=== PATIENT | female | born 1960 | race Caucasian/White ===

== ENCOUNTER 2016-09-27 07:30 | Inpatient (IN) | payer BC ==
[~2016-09-27] VITALS: Ht 172.7 cm; Wt 89.0 kg
[2016-10-31] MEDS ORDERED: D5-NS + KCL 20 MEQ 1,000 ML IV SCH (05:30)
[2016-11-01] VITALS (8 sets, daily range): BP systolic 100–123; BP diastolic 56–72; PULSE 62–77; RESP 13–28; Ht 172.7 cm; Wt 89.0 kg
[2016-11-01] MEDS ORDERED: metroNIDAZOLE 500 MG/NS (PMX) 100 ML IVPB ONE (05:30)
[2016-11-01] MEDS ORDERED: CEFAZOLIN 2 GM/50 ML (PMX) 50 ML IVPB ONE (06:00)
[2016-11-01] MEDS ORDERED: VASOPRESSIN 20 UNITS INJ ONE (06:45)
[2016-11-01] MEDS ORDERED: THROMBIN 5000 UNIT VIAL ONE (06:45)
[2016-11-01] MEDS ORDERED: CLINDAMYCIN 900 MG/50 ML D5W IVPB IVPB ONE (07:00)
[2016-11-01] MEDS ORDERED: metroNIDAZOLE 500 MG/100 ML NS IVPB ONE (07:00)
[2016-11-01] MEDS ORDERED: METHYLENE BLUE 1% 10 ML INJ ONE (07:10)
[2016-11-01] MEDS ORDERED: MIDAZOLAM 1 MG/ML 2 ML INJ ONE (07:53)
[2016-11-01] MEDS ORDERED: morphine SULFATE/PF (10 MG/10 ML) INJ ONE (07:55)
--- NOTE | 2016-11-01 07:55 | HP ---
Date/Time of Note Date/Time of Note DATE: 11/01/16 TIME: 07:55 Assessment/Plan VTE Prophylaxis VTE Prophylaxis Intervention: SCD's Lines/Catheters IV Catheter Type (from Nrsg): Peripheral IV HPI/ROS Admit Date/Time Admit Date/Time Nov 01, 2016 at 05:38 Hx of Present Illness Katarzyna Lozano M.D. 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 Surgery has been previously scheduled and cx'd twice due to pt's request Past Medical History: Surgical: Appy G 5 P 1 AB 4 Medical: Diabtes, High Cholesterol, Arthritis Medications: 06/29/16 Flagyl 250 mg tablet 1 tablet by mouth as directed 1 po qd x 2 days louise 09/08/16 Golytely 236 gram-22.74 gram-6.74 gram-5.86 gram oral solution 1 mL by mouth as directed begin bowel prep at 11am 09/08/16 Levaquin 250 mg tablet 1 tablet by mouth as directed 1 po qd x 2 days louise 06/29/16 Levaquin 500 mg tablet 1 tablet by mouth DAILY gardisil Allergies: 06/05/16 Penicillins Family Hx: non-contributary Social HX: non-contributary ROS: as above Physical Examination Vitals (10/24/2016): Weight 197, Height 68, BP 118/60, BMI 30.0. General: Alert. HEENT: Pupils are equal, round, reactive to light and accommodation. Neck: Supple with no masses of lymphadenopathy. Breast: Deferred due to recent examination and responsibility of primary care physician. Chest: Clear to auscultation Heart: Normal rhythm with no murmur. Abdomen: Non tender, no ascites nor organomeglay. Pelvis: Uterus enlarged and globular, no adnexal masses, mildly tender with prolabsed small myoma; not technically possibe to do leep or cone Rectal: Confirmatory with pelvic exam. Neurological: Grossly intact Assessment: PMB and at least FREDDY II. Plan: Plan TLH/BSO possible LND. All risks and benefits of this procedure have been discussed in detail with the patient, as well as alternative treatment strategies and their implications. The patient is aware that there is some possibility of a blood transfusion and its associated risks and benefits. She wishes to proceed and gives her informed consent. Katarzyna Lozano M.D. PMH/Family/Social Social History Smoking Status: Current every day smoker Exam/Review of Systems Vital Signs Vitals Vital Signs Date Time Temp Pulse Resp B/P Pulse Ox O2 Delivery O2 Flow Rate FiO2 11/01/16 06:25 97.8 75 18 115/72 96 Room Air KATARZYNA LOZANO MD Nov 01, 2016 07:55
--- NOTE | 2016-11-01 07:56 | HPN ---
Date/Time of Note Date/Time of Note DATE: 11/01/16 TIME: 07:56 Interval H&P Admission Note Pt. seen H&P reviewed: No system changes KATARZYNA LOZANO MD Nov 01, 2016 07:56
[2016-11-01] MEDS ORDERED: PHENYLephrine (100 MCG/ML) 5ML SYG ONE (08:08)
[2016-11-01] MEDS ORDERED: PROPOFOL 20 ML ONE (08:35)
[2016-11-01] MEDS ORDERED: LIDOCAINE 2% (SDV) 5 ML INJ ONE (08:35)
[2016-11-01] MEDS ORDERED: SUCCINYLCHOLINE CHLORIDE 100 MG/5 ML SYG IV ONE (08:35)
[2016-11-01] MEDS ORDERED: FENTAnyl 50 MCG/ML VIAL ONE (08:36)
[2016-11-01] MEDS ORDERED: ROCURONIUM 50 MG INJ ONE (08:36)
[2016-11-01] MEDS ORDERED: PROCHLORPERAZINE 10 MG INJ IV PRN (09:30)
[2016-11-01] MEDS ORDERED: DIPHENHYDRAMINE 50 MG INJ IV PRN ×2 (09:30→12:00)
[2016-11-01] MEDS ORDERED: METOCLOPRAMIDE 10 MG INJ IV PRN (09:30)
[2016-11-01] MEDS ORDERED: HYDROmorphONE 1 MG/ML SYG IV PRN ×2 (09:30)
[2016-11-01] MEDS ORDERED: ONDANSETRON 4 MG INJ IV PRN ×3 (09:30→12:00)
[2016-11-01] MEDS ORDERED: HYDROmorphONE (0.2 MG/ML) 10ML SYG IV PRN ×3 (09:30)
[2016-11-01] MEDS ORDERED: NALOXONE (0.4 MG/ML) INJ IV PRN (09:30)
[2016-11-01] MEDS ORDERED: FENTAnyl 50 MCG/ML VIAL IV PRN (09:30)
[2016-11-01] MEDS ORDERED: VASOPRESSIN 20 UNITS INJ IRR ONE (09:35)
[2016-11-01] MEDS ORDERED: THROMBIN 5000 UNIT VIAL TOP ONE (09:37)
[2016-11-01] MEDS: POTASSIUM CHLORIDE 20 MEQ in LACTATED RINGER'S 1,000 ML IV SCH ×3 (11:37→21:43)
[2016-11-01] MEDS: DIPHENHYDRAMINE 50 MG INJ IV PRN ×2 (11:54→12:10)
[2016-11-01] MEDS ORDERED: morphine 2 MG INJ IV PRN (12:00)
[2016-11-01] MEDS ORDERED: HYDROCODONE/APAP (5/325) TAB PO PRN (12:00)
[2016-11-01] MEDS ORDERED: CEFAZOLIN 1 GM in SOD CHLORIDE 0.9% 100 ML IVPB SCH (12:00)
[2016-11-01 12:07] LABS: ADD SCAN DIFF NO
[2016-11-01 12:15] LABS: BASOPHILS % 0.5 % (0.0-2.0); EOSINOPHILS # 0.2 10^3/ul (0.0-0.5); EOSINOPHILS % 2.6 % (0.0-7.0); LYMPHOCYTES # 3.4 10^3/ul (0.8-2.9); LYMPHOCYTES % 42.3 % (15.0-51.0); MEAN CORPUSCULAR HEMOGLOBIN 28.9 pg (29.0-33.0); MEAN CORPUSCULAR HGB CONC 32.4 g/dl (32.0-37.0); MEAN CORPUSCULAR VOLUME 89.2 fl (82.0-101.0); MEAN PLATELET VOLUME 10.8 fl (7.4-10.4); MONOCYTE # 0.4 10^3/ul (0.3-0.9); MONOCYTES % 5.5 % (0.0-11.0); NEUTROPHIL # 3.9 10^3/ul (1.6-7.5); NEUTROPHILS % 48.6 % (39.0-77.0); PLATELET COUNT 282 10^3/UL (140-415); RED BLOOD COUNT 4.15 10^6/ul (4.20-5.40); RED CELL DISTRIBUTION WIDTH 12.5 % (11.5-14.5)
[2016-11-01 12:33] LABS: CALCIUM 8.3 mg/dl (8.4-10.2); CREATININE 0.61 mg/dl (0.44-1.00); POTASSIUM 3.4 mmol/L (3.5-5.1)
[2016-11-01] MEDS: metroNIDAZOLE 500 MG/NS (PMX) 100 ML IVPB SCH ×2 (12:53→21:02)
[2016-11-01] MEDS: CLINDAMYCIN 900 MG/D5W (PMX) 50 ML IVPB SCH ×2 (14:24→22:02)
--- NOTE | 2016-11-01 15:09 | HP ---
DATE OF ADMISSION: 11/01/2016 HISTORY OF PRESENT ILLNESS: The patient is a pleasant 56-year-old female. Patient with a past medic al history positive for arthritis and hypercholesterolemia and diabetes. The patient developed post menopausal bleeding and underwent endocervical and endometrial curretage in 2016 with FREDDY 2-3 and 7. 5 mm endometrium with minimal finding on initial endometrial biopsy. The patient was evaluated by Yuliya Mario in surgery consultation and patient was brought to the hospital and underwent a laparosc opic hysterectomy with bilateral salpingo-oophorectomy. Postoperatively the patient experienced mod erate pain and nausea and patient is admitted for further evaluation and management. PAST MEDICAL HISTORY: Per HPI. PAST SURGICAL HISTORY: Status post appendectomy, status post nose surgery. FAMILY HISTORY: Noncontributory. SOCIAL HISTORY: Patient lives at home. The patient smokes about 3 to 4 cigarettes a day, smoked fo r many years. Patient denies any alcohol use, denies any illicit drug use. ALLERGIES: PATIENT IS ALLERGIC TO PENICILLIN ANTIBIOTICS. HOME MEDICATIONS: Medication list is not available, asked the nurses to update home medication list . REVIEW OF SYSTEMS: A 12-point review of systems negative unless mentioned in the HPI. PHYSICAL ASSESSMENT GENERAL: Well-developed, well-nourished female currently is awake, alert. VITAL SIGNS: Temperature is 97.3, pulse is 69, blood pressure 101/59, respiratory rate 18, oxygen s aturation 95% on room air. HEENT: Head is atraumatic, normocephalic. Pupils equal, round, reactive to light and accommodation . Oral mucosa is pink and moist. NECK: Supple, no cervical lymphadenopathy, no thyromegaly. CHEST: Lungs clear bilaterally. There is no rhonchi, wheezes, rales noted. CARDIOVASCULAR: Normal S1, S2. No murmurs, gallops, clicks, rubs noted. ABDOMEN: Protuberant, status post laparoscopic surgery with intact laparoscopic incisions. EXTREMITIES: No edema, clubbing, cyanosis. Pulses equal bilaterally 2+. SKIN: There is no rash, petechiae noted. NEUROLOGIC: Patient is awake, alert and oriented x4. No focal deficits noted. LABORATORY DATA: On admission, CBC: White blood cells of 8.0, hemoglobin 12.0, hematocrit 37.0, pl atelets 282. Chemistry: Sodium is 140, potassium 3.4, chloride 104, carbon dioxide 30, anion gap 9 , BUN is 8, creatinine 0.61, glucose 188, calcium is 8.3. ASSESSMENT AND PLAN: 1. Status post hysterectomy with bilateral salpingo-oophorectomy. I will continue to follow up Dr. Mario's recommendations. Continue [place] and Toradol for pain and Zofran p.r.n. for nausea. Patie nt receiving antibiotics. Will continue Pepcid for peptic ulcer disease prophylaxis and sequential compression device for deep venous thrombosis prophylaxis. 2. History of diabetes. We will obtain hemoglobin A1c. 3. Hypercholesterolemia. 4. Arthritis by history. Further recommendations based on clinical course. Plan of care discussed with Dr. Lomeli. Dictated By: CIERA AMBROCIO X RAY CONSULTANT for ROSAURA LOMELI MD SR/NTS Conf#: [id number] DID#: [id number]
[2016-11-01] MEDS: FAMOTIDINE 20 MG INJ IV SCH (21:00)
[2016-11-02 01:00] VITALS: BP 123/57; PULSE 82; RESP 16
[2016-11-02] MEDS: POTASSIUM CHLORIDE 20 MEQ in LACTATED RINGER'S 1,000 ML IV SCH ×4 (03:33→22:45)
[2016-11-02] MEDS: metroNIDAZOLE 500 MG/NS (PMX) 100 ML IVPB SCH (05:00)
[2016-11-02 05:16] VITALS: BP 127/66; PULSE 94; RESP 16
[2016-11-02 05:43] LABS: ADD SCAN DIFF NO
[2016-11-02 05:49] LABS: BASOPHILS % 0.1 % (0.0-2.0); HEMATOCRIT 34.6 % (37.0-47.0); HEMOGLOBIN 11.5 g/dl (12.0-16.0); LYMPHOCYTES # 1.8 10^3/ul (0.8-2.9); LYMPHOCYTES % 12.3 % (15.0-51.0); MEAN CORPUSCULAR HEMOGLOBIN 29.1 pg (29.0-33.0); MEAN CORPUSCULAR HGB CONC 33.2 g/dl (32.0-37.0); MEAN CORPUSCULAR VOLUME 87.6 fl (82.0-101.0); MEAN PLATELET VOLUME 11.2 fl (7.4-10.4); MONOCYTE # 0.8 10^3/ul (0.3-0.9); MONOCYTES % 5.2 % (0.0-11.0); NEUTROPHIL # 12.3 10^3/ul (1.6-7.5); PLATELET COUNT 272 10^3/UL (140-415); RED BLOOD COUNT 3.95 10^6/ul (4.20-5.40); RED CELL DISTRIBUTION WIDTH 12.6 % (11.5-14.5)
[2016-11-02 06:00] LABS: INR 1.04; PROTIME 13.6 Sec (12.2-14.2); PT RATIO 1.1
[2016-11-02] MEDS: CLINDAMYCIN 900 MG/D5W (PMX) 50 ML IVPB SCH (06:00)
[2016-11-02 06:34] LABS: ALBUMIN 4.1 g/dl (3.3-4.9); ALBUMIN/GLOBULIN RATIO 2.05; BILIRUBIN,INDIRECT 0.4 mg/dl (0-1.1); BILIRUBIN,TOTAL 0.4 mg/dl (0.2-1.3); CALCIUM 8.8 mg/dl (8.4-10.2); CREATININE 0.58 mg/dl (0.44-1.00); POTASSIUM 3.8 mmol/L (3.5-5.1); TOTAL PROTEIN 6.1 g/dl (6.1-8.1)
[2016-11-02] MEDS ORDERED: DEXTROSE 50% 50 ML SYRINGE IV PRN ×2 (07:00)
[2016-11-02] MEDS ORDERED: GLUCAGON 1 MG INJ IM PRN (07:00)
[2016-11-02] MEDS ORDERED: GLUCOSE GEL 15 GRAM TUBE BUCCAL PRN (07:00)
[2016-11-02] MEDS ORDERED: GLUCOSE GEL 15 GRAM TUBE PO PRN ×2 (07:00)
[2016-11-02 07:37] VITALS: BP 135/66; RESP 18
[2016-11-02] MEDS: INSULIN ASPART [NOVOLOG] 3 ML PEN SC SCH ×4 (08:15→21:00)
[2016-11-02] MEDS: FAMOTIDINE 20 MG INJ IV SCH ×2 (09:00→21:00)
--- NOTE | 2016-11-02 09:35 | CONS ---
Date/Time of Note Date/Time of Note DATE: 11/02/16 TIME: 09:33 Consultation Date/Type/Reason Admit Date/Time Nov 01, 2016 at 05:38 Initial Consult Date 11/02/16 Type of Consultation: Anesthesiology Reason for Consultation Follow up 24 HR Interval Summary Free Text/Dictation Pt seen and examined at bedside is POD#1 s/p Laprascopic Hysterectomy with BSO. Pt received spinal duramorph for post op pain. She states she is doing well and does not have pain but feels uncomfortable due to her urinary catheter. No BORJA/N/ V/D/Numbness. Will follow. Constitutional: improved Exam/Review of Systems Vital Signs Vitals Vital Signs Date Time Temp Pulse Resp B/P Pulse Ox O2 Delivery O2 Flow Rate FiO2 11/02/16 07:37 100.1 18 135/66 93 11/02/16 05:16 94 Room Air 11/01/16 11:51 2.0 Intake and Output 11/01/16 11/01/16 11/02/16 15:00 23:00 07:00 Intake Total 1400 ml 790 ml 1395 ml Output Total 300 ml 200 ml 550 ml Balance 1100 ml 590 ml 845 ml Results Result Diagram: 11/02/16 0505 11/02/16 0505 Results 24 hrs Laboratory Tests Test 11/01/16 12:03 11/02/16 05:05 11/02/16 08:14 White Blood Count 8.0 15.0 #H Red Blood Count 4.15 L 3.95 L Hemoglobin 12.0 11.5 L Hematocrit 37.0 34.6 L Mean Corpuscular Volume 89.2 87.6 Mean Corpuscular Hemoglobin 28.9 L 29.1 Mean Corpuscular Hemoglobin Concent 32.4 33.2 Red Cell Distribution Width 12.5 12.6 Platelet Count 282 272 Mean Platelet Volume 10.8 H 11.2 H Neutrophils % 48.6 82.0 H Lymphocytes % 42.3 12.3 L Monocytes % 5.5 5.2 Eosinophils % 2.6 0.0 Basophils % 0.5 0.1 Nucleated Red Blood Cells % 0.0 0.0 Neutrophils # 3.9 12.3 H Lymphocytes # 3.4 H 1.8 Monocytes # 0.4 0.8 Eosinophils # 0.2 0.0 Basophils # 0.0 0.0 Nucleated Red Blood Cells # 0.0 0.0 Sodium Level 140 140 Potassium Level 3.4 L 3.8 Chloride Level 104 105 Carbon Dioxide Level 30 27 Anion Gap 9 12 Blood Urea Nitrogen 8 9 Creatinine 0.61 0.58 Glucose Level 188 150 Hemoglobin A1c 8.5 H Calcium Level 8.3 L 8.8 Prothrombin Time 13.6 Prothrombin Time Ratio 1.1 INR International Normalized Ratio 1.04 Total Bilirubin 0.4 Direct Bilirubin 0.00 Indirect Bilirubin 0.4 Aspartate Amino Transf (AST/SGOT) 24 Alanine Aminotransferase (ALT/SGPT) 41 Alkaline Phosphatase 86 Total Protein 6.1 Albumin 4.1 Globulin 2.00 Albumin/Globulin Ratio 2.05 Bedside Glucose 162 Medications Medications Current Medications Metronidazole (Flagyl 500 Mg (Pmx)) 100 ml @ 100 mls/hr Q8H IVPB Last administered on 11/02/16 05:00; Admin Dose 100 MLS/HR; Start 11/01/16 at 12:00 ; Stop 11/02/16 at 11:59 Morphine Sulfate (morphine) 2 mg Q2H PRN IV PAIN LEVEL 6-10; Start 11/01/16 at 12:00 Acetaminophen/ Hydrocodone Bitart ([place] (5/325)) 1 tab Q6H PRN PO PAIN LEVEL 6 -10; Start 11/01/16 at 12:00 Ketorolac Tromethamine (Toradol) 30 mg Q6H PRN IV PAIN; Start 11/01/16 at 12:00 ; Stop 11/04/16 at 11:59 Diphenhydramine HCl (Benadryl) 25 mg Q6H PRN IV ITCHING; Start 11/01/16 at 12: 00 Ondansetron HCl (Zofran Inj) 4 mg Q6H PRN IV NAUSEA AND/OR VOMITING; Start at 12:00 Famotidine 20 mg 20 mg Q12 IV ; Start 11/01/16 at 21:00 Potassium Chloride/Lactated Ringer's (KCl/Lr) 1,010 ml @ 100 mls/hr Q10H6M IV Last administered on 11/02/16 03:33; Admin Dose 100 MLS/HR; Start 11/01/16 at 11:37 Diagnostic Test (Pha) (Accu-Chek) 1 ea 02 XX ; Start 11/03/16 at 02:00 Miscellaneous Information 1 ea NOTE XX ; Start 11/02/16 at 07:00 Glucose (Glutose) 15 gm Q15M PRN PO DECREASED GLUCOSE; Start 11/02/16 at 07:00 Glucose (Glutose) 22.5 gm Q15M PRN PO DECREASED GLUCOSE; Start 11/02/16 at 07: 00 Dextrose (D50w Syringe) 25 ml Q15M PRN IV DECREASED GLUCOSE; Start 11/02/16 at 07:00 Dextrose (D50w Syringe) 50 ml Q15M PRN IV DECREASED GLUCOSE; Start 11/02/16 at 07:00 Glucagon (Glucagen) 1 mg Q15M PRN IM DECREASED GLUCOSE; Start 11/02/16 at 07:00 Glucose (Glutose) 15 gm Q15M PRN BUCCAL DECREASED GLUCOSE; Start 11/02/16 at 07 :00 LAZARO GAINES Nov 02, 2016 09:35
[2016-11-02] MEDS: KETOROLAC 30 MG INJ IV PRN ×2 (10:27→22:44)
[2016-11-02 20:35] VITALS: BP 125/59; RESP 20
--- NOTE | 2016-11-02 22:03 | PN ---
Date/Time of Note Date/Time of Note DATE: 11/02/16 TIME: 22:00 Assessment/Plan VTE Prophylaxis VTE Prophylaxis Intervention: SCD's Lines/Catheters IV [facility] Peripheral IV Urinary Cath still in place: No Assessment/Plan Chief Complaint/Hosp Course elena III, endometrial thickness Problems: Assessment/Plan A- doing well P- adv diet and probably d/c a.m. Subjective 24 Hr Interval Summary Free Text/Dictation + flatus and OOB Exam/Review of Systems Vital Signs Vitals Vital Signs Date Time Temp Pulse Resp B/P Pulse Ox O2 Delivery O2 Flow Rate FiO2 11/02/16 20:35 99.9 98 20 125/59 95 11/02/16 05:16 Room Air 11/01/16 11:51 2.0 Intake and Output 11/01/16 11/01/16 11/02/16 15:00 23:00 07:00 Intake Total 1400 ml 790 ml 1395 ml Output Total 300 ml 200 ml 550 ml Balance 1100 ml 590 ml 845 ml Exam Resp- clear CVS- nsr Abd- soft nt Ext- nt no edema Results Result Diagram: 11/02/16 0505 11/02/16 0505 Results 24 hrs Laboratory Tests Test 11/02/16 05:05 11/02/16 08:14 11/02/16 12:28 11/02/16 17:43 White Blood Count 15.0 #H Red Blood Count 3.95 L Hemoglobin 11.5 L Hematocrit 34.6 L Mean Corpuscular Volume 87.6 Mean Corpuscular Hemoglobin 29.1 Mean Corpuscular Hemoglobin Concent 33.2 Red Cell Distribution Width 12.6 Platelet Count 272 Mean Platelet Volume 11.2 H Neutrophils % 82.0 H Lymphocytes % 12.3 L Monocytes % 5.2 Eosinophils % 0.0 Basophils % 0.1 Nucleated Red Blood Cells % 0.0 Neutrophils # 12.3 H Lymphocytes # 1.8 Monocytes # 0.8 Eosinophils # 0.0 Basophils # 0.0 Nucleated Red Blood Cells # 0.0 Prothrombin Time 13.6 Prothrombin Time Ratio 1.1 INR International Normalized Ratio 1.04 Sodium Level 140 Potassium Level 3.8 Chloride Level 105 Carbon Dioxide Level 27 Anion Gap 12 Blood Urea Nitrogen 9 Creatinine 0.58 Glucose Level 150 Calcium Level 8.8 Total Bilirubin 0.4 Direct Bilirubin 0.00 Indirect Bilirubin 0.4 Aspartate Amino Transf (AST/SGOT) 24 Alanine Aminotransferase (ALT/SGPT) 41 Alkaline Phosphatase 86 Total Protein 6.1 Albumin 4.1 Globulin 2.00 Albumin/Globulin Ratio 2.05 Bedside Glucose 162 150 134 Test 11/02/16 21:26 Bedside Glucose 136 Medications Medications Current Medications Morphine Sulfate (morphine) 2 mg Q2H PRN IV PAIN LEVEL 6-10; Start 11/01/16 at 12:00 Acetaminophen/ Hydrocodone Bitart ([place] (5/325)) 1 tab Q6H PRN PO PAIN LEVEL 6 -10; Start 11/01/16 at 12:00 Ketorolac Tromethamine (Toradol) 30 mg Q6H PRN IV PAIN Last administered on 10:27; Admin Dose 30 MG; Start 11/01/16 at 12:00; Stop 11/04/16 at 11:59 Diphenhydramine HCl (Benadryl) 25 mg Q6H PRN IV ITCHING; Start 11/01/16 at 12: 00 Ondansetron HCl (Zofran Inj) 4 mg Q6H PRN IV NAUSEA AND/OR VOMITING; Start at 12:00 Famotidine 20 mg 20 mg Q12 IV ; Start 11/01/16 at 21:00 Potassium Chloride/Lactated Ringer's (KCl/Lr) 1,010 ml @ 100 mls/hr Q10H6M IV Last administered on 11/02/16 03:33; Admin Dose 100 MLS/HR; Start 11/01/16 at 11:37 Diagnostic Test (Pha) (Accu-Chek) 1 ea 02 XX ; Start 11/03/16 at 02:00 Miscellaneous Information 1 ea NOTE XX ; Start 11/02/16 at 07:00 Glucose (Glutose) 15 gm Q15M PRN PO DECREASED GLUCOSE; Start 11/02/16 at 07:00 Glucose (Glutose) 22.5 gm Q15M PRN PO DECREASED GLUCOSE; Start 11/02/16 at 07: 00 Dextrose (D50w Syringe) 25 ml Q15M PRN IV DECREASED GLUCOSE; Start 11/02/16 at 07:00 Dextrose (D50w Syringe) 50 ml Q15M PRN IV DECREASED GLUCOSE; Start 11/02/16 at 07:00 Glucagon (Glucagen) 1 mg Q15M PRN IM DECREASED GLUCOSE; Start 11/02/16 at 07:00 Glucose (Glutose) 15 gm Q15M PRN BUCCAL DECREASED GLUCOSE; Start 11/02/16 at 07 :00 KATARZYNA LOZANO MD Nov 02, 2016 22:03
[2016-11-03] MEDS ORDERED: ACCU-CHEK XX SCH (02:00)
[2016-11-03] MEDS: ACCU-CHEK XX SCH (02:00)
[2016-11-03] MEDS: KETOROLAC 30 MG INJ IV PRN (05:53)
[2016-11-03] MEDS ORDERED: NEOSTIGMINE 3 MG/3 ML SYRINGE ONE (07:00)
[2016-11-03] MEDS ORDERED: GLYCOPYRROLATE 0.4 MG INJ ONE (07:00)
[2016-11-03 07:50] VITALS: BP 111/59; RESP 18
[2016-11-03] MEDS: INSULIN ASPART [NOVOLOG] 3 ML PEN SC SCH ×4 (08:15→21:00)
[2016-11-03] MEDS: FAMOTIDINE 20 MG INJ IV SCH ×2 (08:16→21:00)
[2016-11-03] MEDS: POTASSIUM CHLORIDE 20 MEQ in LACTATED RINGER'S 1,000 ML IV SCH (12:55)
--- NOTE | 2016-11-03 13:07 | OPR ---
Date/Time of Note Date/Time of Note DATE: 11/03/16 TIME: 13:06 Operative Report Free Text/Dictation OPERATIVE REPORT [facility] Name: Yoana Sherwood ount #: [id number] Date: 11/01/16 Preoperative Diagnosis: 1- FREDDY III s/p prior LEEP repeat technically not possible 2- Thickened endometrium Postoperative Diagnosis: Pathology pending Procedures: 1. Laparoscopic Type 2 Hysterectomy / Bilateral salpingoophorectomy 2. [place]/selective pelvic lymph node dissection Surgeon: Dr. Mario Compounder Sterile Products: Dr. Gaston Anesthesia: General with regional Indications for Procedure; The patient is a 56- year old female who had a prior LEEP with a preinvasive finding. She the had repeat FREDDY III with a positive ECC and a repeat LEEP was not anatomically possible with a thickened endometrium. Hence after considering all options with risks and benefits the Laparoscopic Type 2 Hysterectomy with Bilateral salpingoophorectomy with sentinel/selective LND was selected. Summary of Procedure: The patient was laparoscoped with the finding of some adhesions and the adnexia densely adherent to the sidewalls and some fibroids. The Laparoscopic Type 2 Hysterectomy with Bilateral salpingoophorectomy with sentinel/selective LND was completed with negative findings on frozen section. Findings and Procedure: After being prepped and draped in the usual manner a EEA sizer and pneumo- occluder Name: Yoana Sherwood [facility] #: [id number] was inserted vaginally after which a 5 millimeter trocar was placed cephlad to the umbilicus without incident. Subsequently, we insufflated and placed two 12 millimeter trocars laterally and a 12 millimeter trocar suprapubically. At this time the 0-degree 5-millimeter laparoscopic was secured and manipulated with a Scope manipulator and any pelvic adhesions were lysed with sharp dissection. The uterus was manipulated with a previously placed EEA sizer. There was no apparent extra-uterine disease. A baby-lap was placed and a ratcheted endo-grasper was inserted via the suprapubic trocar and used to manipulate the uterus while being secured with a Anton-arm, after which the right round ligament was transected with a Thunderbeat. The bladder flap was then developed with a Gyrus bipolar cutting forceps instrument as well as Omni and blunt dissection. The retroperitoneal area was opened with the Omni parallel to the IP-ligament and the ureter was identified. Due to both scarring and inflammation from the prior procedure and the uterine enlargement as well as the need to isolate the uterine artery the ureter was dissected with the Omni and lateralized, after which normal peristalsis was observed. Of note, the aforementioned inflammation as well as adnexia adherent to the sidewall necessitated that the ureteral dissection with repositioning being more extensive than anticipated but this was completed without incident. After repositioning the ureter laterally away from the peritoneum, the minor-rectal and minor-vessicle space was developed bluntly, after which a space was applied to the right broad ligament and the right IP-ligament was cauterized and transected with the Gyrus bipolar cutting forceps. We then repositioned the uterus with the ratcheted endo-grasper and with a Anton arm. With both the aforementioned ureter identified and traced out the uterine vessels were thoroughly dissected separately identified, clipped multiple areas, and cut. The ureter was then tunneled through the parametria with an endo dissector, and the parametrial pedicle cauterized remote from the ureters and transected with the Omni and Thunderbeat. An identical procedure was used to transect the uterosacral ligaments an appropriate distance from the cervix with the Omni. Any bleeding areas were addressed with additional cautery using the Thunderbeat and the Omni. The bladder pillar was then dissected and clipped and desiccated and transected, after which the ureters was confirmed to be undamaged. At this time the uterine positioning adjusted with the ratcheted endo -grasper and secured Name: [facility] #: [id number] with the lower Anton-arm and the contralateral retroperitoneal area opened with the Omni and the adjacent round ligament cauterized and transected with the Gyrus bipolar cutting forceps. The retroperitoneal space was opened with the Omni and extended. The retroperitoneal area was further opened with the Omni parallel to the IP-ligament and the ureter was identified. Due to similar scarring and inflammation from the prior procedure as noted contralaterally with hypervascularity as well as uterine enlargement and the need to isolate the uterine artery the ureter was dissected with the Omni and lateralized, after which normal peristalsis was observed. Of note, the aforementioned inflammation as well as adnexia adherent to the sidewall necessitated that the ureteral dissection with repositioning be more extensive than anticipated but this was completed without incident. After repositioning the ureter laterally away from the peritoneum, the minor-rectal and minor-vessicle space was developed bluntly, after which a space was applied to the left broad ligament and the left IP-ligament was cauterized and transected with the Thunderbeat. We then repositioned the uterus with the ratcheted endo-grasper with a Anton Arm retractor. With both the aforementioned ureter identified and traced out the left uterine vessels were thoroughly dissected separately identified, clipped multiple areas, and cut. The ureter was then tunneled through the parametria with an endo dissector, and the parametrial pedicle cauterized remote from the ureters and transected with the Omni. An identical procedure was used to transect the uterosacral ligaments an appropriate distance from the with the Omni. Any bleeding areas were addressed with additional cautery using the Gyrus bipolar cutting forceps and the Omni. The bladder pillar was then dissected and clipped and desiccated and transected as done contralaterally, after which the ureters was confirmed to be undamaged. Subsequently, additional paravaginal tissue was transected with the Omni and the uterus and cervix from the vagina by using a Gyrus bipolar spatula devise along the edge of the EEA sizer. Colpotomies were made posterior and anterior and extended. The uterus was removed from below and the vagina closed with interrupted figure of eight sutures using 2-0-vicryl and continuous 2-0 strata-fix suture. After confirming hemostasis a fan retractor was placed and secured with the Anton Arm retractor on the right and a Stortz scope-maher was used to secure the laparoscope and adjusted as needed after which the nodes noted to be in the hypogastric area and Name: [facility] #: [id number] obturator area on the right retroperitoneal area were dissected with the Omni and Gyrus bipolar cutting forceps for hemostasis and lymphostasis. The dissection included the use of the instruments for traction and counter traction and the obturator nerve was identified in the process. Subsequently exposure was modified and nodes noted to be equivalent on the left retroperitoneal area were dissected with the Omni and Gyrus bipolar cutting forceps for hemostasis and lymphostasis similar to contralaterally with technique. The dissection included the use of the instruments for traction and counter traction and the obturator nerve was identified in the process. After irrigating and assuring hemostasis all 12 millimeter trocar fascia were removed and the fascia was closed with 0-vicryl using with endo-close devise. The gas was removed and the skin of all sites then closed with 6-0 Monocryl suture. The EBL was 75 ml and the patient tolerated the procedure well and left the OR in good condition. Katarzyna Mario M.D. KATARZYNA MARIO MD Nov 03, 2016 13:06
[2016-11-03] MEDS: metroNIDAZOLE 500 MG/NS (PMX) 100 ML IVPB SCH ×2 (14:00→21:20)
--- NOTE | 2016-11-03 14:21 | PN ---
DATE: 11/03/2016 SUBJECTIVE: The patient is complaining of diarrhea, although she is able to tolerate a p.o. diet. No reported fever or chills. The patient is refusing insulin for sliding scale coverage. The patie nt was told that her hemoglobin A1c is 8.5, indicating that she needs some sort of treatment for roseline betes. The patient has not been taking any medication and is reluctant to start any medications. H owever, I was able to convince her that at least we should start Metformin 500 mg b.i.d. Meanwhile t he patient also had multiple episodes of diarrhea. Stool for Clostridium difficile has been ordered . The patient will be empirically started on IV Flagyl. The patient's postoperative pain is well c ontrolled. PHYSICAL EXAMINATION: GENERAL: The patient is conscious, awake, alert. VITAL SIGNS: T-maximum is 100.1, currently temperature is 98.8. Pulse 98, respirations 18, blood p ressure 111/59, O2 saturation 98% on room air. HEENT: No eye discharge or redness. Oropharynx is clear. NECK: No mass. CHEST: Fairly clear. CARDIOVASCULAR: S1, S2 normal. No murmur. ABDOMEN: Soft, nondistended. EXTREMITIES: No edema. Pedal pulses palpable. SKIN: Without acute rash. LABORATORY: Pending. Last blood sugar was however 146. IMPRESSION: 1. 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 Continue postoperative care as per Dr. Mario. 2. Diarrhea. Will check stool for Clostridium difficile. Will start IV Flagyl empirically. 3. Diabetes mellitus. Will start Metformin 500 mg twice a day. If the patient continues to do well, she will be discharged home tomorrow. Will do a CBC and BMP to day. Dictated By: ROSAURA JACOBS/JOHN Conf#: [id number] DID#: [id number]
[2016-11-03 14:27] LABS: ADD SCAN DIFF NO
[2016-11-03 14:30] LABS: BASOPHILS % 0.3 % (0.0-2.0); EOSINOPHILS # 0.2 10^3/ul (0.0-0.5); EOSINOPHILS % 1.4 % (0.0-7.0); HEMATOCRIT 34.4 % (37.0-47.0); HEMOGLOBIN 11.3 g/dl (12.0-16.0); LYMPHOCYTES # 2.5 10^3/ul (0.8-2.9); LYMPHOCYTES % 16.9 % (15.0-51.0); MEAN CORPUSCULAR HGB CONC 32.8 g/dl (32.0-37.0); MEAN CORPUSCULAR VOLUME 88.2 fl (82.0-101.0); MEAN PLATELET VOLUME 10.9 fl (7.4-10.4); MONOCYTE # 0.9 10^3/ul (0.3-0.9); MONOCYTES % 5.9 % (0.0-11.0); NEUTROPHIL # 11.1 10^3/ul (1.6-7.5); PLATELET COUNT 261 10^3/UL (140-415); RED CELL DISTRIBUTION WIDTH 12.9 % (11.5-14.5); WHITE BLOOD COUNT 14.8 10^3/ul (4.8-10.8)
[2016-11-03 15:13] LABS: CALCIUM 8.8 mg/dl (8.4-10.2); CREATININE 0.52 mg/dl (0.44-1.00); POTASSIUM 3.8 mmol/L (3.5-5.1)
[2016-11-03] MEDS: metFORMIN 500 MG TAB GTB SCH (17:31)
[2016-11-03 20:28] VITALS: BP 126/67; RESP 18
--- NOTE | 2016-11-03 23:16 | PN ---
Date/Time of Note Date/Time of Note DATE: 11/03/16 TIME: 23:14 Assessment/Plan VTE Prophylaxis VTE Prophylaxis Intervention: SCD's Lines/Catheters IV Catheter Type (from Nrsg): Peripheral IV Urinary Cath still in place: No Assessment/Plan Chief Complaint/Hosp Course elena III, endometrial thickness Problems: Assessment/Plan A- some diarrhea P- evaluate. disvissed with IM Subjective 24 Hr Interval Summary Free Text/Dictation + flatus and voided OK, recent diarrhea Exam/Review of Systems Vital Signs Vitals Vital Signs Date Time Temp Pulse Resp B/P Pulse Ox O2 Delivery O2 Flow Rate FiO2 11/03/16 20:28 97.8 92 18 126/67 96 11/02/16 05:16 Room Air 11/01/16 11:51 2.0 Intake and Output 11/02/16 11/02/16 11/03/16 15:00 23:00 07:00 Intake Total 1385 ml 240 ml Output Total 700 ml Balance 685 ml 240 ml Exam Resp- clear CVS- NSR Abd- soft nt Ext- Nt no edema Results Result Diagram: 11/03/16 1405 11/03/16 1405 Results 24 hrs Laboratory Tests Test 11/03/16 06:09 11/03/16 08:15 11/03/16 12:11 11/03/16 14:05 Lab Scanned Report REFERENCE LAB Bedside Glucose 120 146 White Blood Count 14.8 H Red Blood Count 3.90 L Hemoglobin 11.3 L Hematocrit 34.4 L Mean Corpuscular Volume 88.2 Mean Corpuscular Hemoglobin 29.0 Mean Corpuscular Hemoglobin Concent 32.8 Red Cell Distribution Width 12.9 Platelet Count 261 Mean Platelet Volume 10.9 H Neutrophils % 75.0 Lymphocytes % 16.9 Monocytes % 5.9 Eosinophils % 1.4 Basophils % 0.3 Nucleated Red Blood Cells % 0.0 Neutrophils # 11.1 H Lymphocytes # 2.5 Monocytes # 0.9 Eosinophils # 0.2 Basophils # 0.0 Nucleated Red Blood Cells # 0.0 Sodium Level 138 Potassium Level 3.8 Chloride Level 106 Carbon Dioxide Level 24 Anion Gap 12 Blood Urea Nitrogen 8 Creatinine 0.52 Glucose Level 148 Calcium Level 8.8 Test 11/03/16 17:26 11/03/16 22:12 Bedside Glucose 147 187 Medications Medications Current Medications Morphine Sulfate (morphine) 2 mg Q2H PRN IV PAIN LEVEL 6-10; Start 11/01/16 at 12:00 Acetaminophen/ Hydrocodone Bitart ([place] (5/325)) 1 tab Q6H PRN PO PAIN LEVEL 6 -10; Start 11/01/16 at 12:00 Ketorolac Tromethamine (Toradol) 30 mg Q6H PRN IV PAIN Last administered on 05:53; Admin Dose 30 MG; Start 11/01/16 at 12:00; Stop 11/04/16 at 11:59 Diphenhydramine HCl (Benadryl) 25 mg Q6H PRN IV ITCHING; Start 11/01/16 at 12: 00 Ondansetron HCl (Zofran Inj) 4 mg Q6H PRN IV NAUSEA AND/OR VOMITING; Start at 12:00 Famotidine 20 mg 20 mg Q12 IV ; Start 11/01/16 at 21:00 Potassium Chloride/Lactated Ringer's (KCl/Lr) 1,010 ml @ 40 mls/hr Q24H IV Last administered on 11/02/16 22:45; Admin Dose 40 MLS/HR; Start 11/01/16 at 11 :37 Diagnostic Test (Pha) (Accu-Chek) 1 ea 02 XX ; Start 11/03/16 at 02:00 Miscellaneous Information 1 ea NOTE XX ; Start 11/02/16 at 07:00 Glucose (Glutose) 15 gm Q15M PRN PO DECREASED GLUCOSE; Start 11/02/16 at 07:00 Glucose (Glutose) 22.5 gm Q15M PRN PO DECREASED GLUCOSE; Start 11/02/16 at 07: 00 Dextrose (D50w Syringe) 25 ml Q15M PRN IV DECREASED GLUCOSE; Start 11/02/16 at 07:00 Dextrose (D50w Syringe) 50 ml Q15M PRN IV DECREASED GLUCOSE; Start 11/02/16 at 07:00 Glucagon (Glucagen) 1 mg Q15M PRN IM DECREASED GLUCOSE; Start 11/02/16 at 07:00 Glucose 15 gm 15 gm Q15M PRN BUCCAL DECREASED GLUCOSE; Start 11/02/16 at 07:00 Metronidazole (Flagyl 500 Mg (Pmx)) 100 ml @ 100 mls/hr Q8 IVPB Last administered on 6/16/17at 21:20; Admin Dose 100 MLS/HR; Start 11/03/16 at 14:00 KATARZYNA LOZANO MD Nov 03, 2016 23:16
[2016-11-04] MEDS: ACCU-CHEK XX SCH (02:00)
[2016-11-04] MEDS ORDERED: ACCU-CHEK XX SCH (02:00)
[2016-11-04] MEDS: POTASSIUM CHLORIDE 20 MEQ in LACTATED RINGER'S 1,000 ML IV SCH ×2 (03:57→10:47)
[2016-11-04] MEDS ORDERED: ACETAMINOPHEN 325 MG TAB PO PRN (04:00)
[2016-11-04] MEDS: metroNIDAZOLE 500 MG/NS (PMX) 100 ML IVPB SCH (05:03)
[2016-11-04 07:32] VITALS: BP 118/56; RESP 18
[2016-11-04] MEDS: metFORMIN 500 MG TAB GTB SCH (08:05)
[2016-11-04] MEDS: INSULIN ASPART [NOVOLOG] 3 ML PEN SC SCH ×2 (08:15→11:56)
[2016-11-04] MEDS: FAMOTIDINE 20 MG INJ IV SCH (09:00)
[2016-11-04] MEDS ORDERED: DOCU-144 PO (12:54)
[2016-11-04] MEDS ORDERED: METF500T GTB (12:54)
--- NOTE | 2016-11-04 13:03 | PDOCDIS ---
Discharge Instructions CONDITION Patient Condition: Stable HOME CARE INSTRUCTIONS: Diet Instructions: Regular ACTIVITY: Activity Restrictions: Slowly Increase Activity Rest between Activity Avoid heavy lifting Do not operate Machinery Do not operate Power Tool Avoid Heavy Housework Bathing Restrictions: Sponge Bath FOLLOW UP/APPOINTMENTS Appointments Call [phone] go to the nearest hospital if symptoms worsen FU PMD on Sunday - for CBC FU surgery as recommended Patient verbalized understanding discharge instructions well. Plan of care DW with ALBERTA Hedrick Nov 04, 2016 13:03
--- NOTE | 2016-11-04 13:12 | DS ---
Date/Time of Note Date/Time of Note DATE: 11/04/16 TIME: 13:12 Discharge Summary Admission/Discharge Info Admit Date/Time Nov 01, 2016 at 05:38 Discharge Date/Time Patient Condition: Stable Hx of Present Illness Will Mario M.D. 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 Surgery has been previously scheduled and cx'd twice due to pt's request Past Medical History: Surgical: Appy G 5 P 1 AB 4 Medical: Diabtes, High Cholesterol, Arthritis Medications: 06/29/16 Flagyl 250 mg tablet 1 tablet by mouth as directed 1 po qd x 2 days louise 09/08/16 Golytely 236 gram-22.74 gram-6.74 gram-5.86 gram oral solution 1 mL by mouth as directed begin bowel prep at 11am 09/08/16 Levaquin 250 mg tablet 1 tablet by mouth as directed 1 po qd x 2 days louise 06/29/16 Levaquin 500 mg tablet 1 tablet by mouth DAILY gardisil Allergies: 06/05/16 Penicillins Family Hx: non-contributary Social HX: non-contributary ROS: as above Physical Examination Vitals (10/24/2016): Weight 197, Height 68, BP 118/60, BMI 30.0. General: Alert. HEENT: Pupils are equal, round, reactive to light and accommodation. Neck: Supple with no masses of lymphadenopathy. Breast: Deferred due to recent examination and responsibility of primary care physician. Chest: Clear to auscultation Heart: Normal rhythm with no murmur. Abdomen: Non tender, no ascites nor organomeglay. Pelvis: Uterus enlarged and globular, no adnexal masses, mildly tender with prolabsed small myoma; not technically possibe to do leep or cone Rectal: Confirmatory with pelvic exam. Neurological: Grossly intact Assessment: PMB and at least FREDDY II. Plan: Plan TLH/BSO possible LND. All risks and benefits of this procedure have been discussed in detail with the patient, as well as alternative treatment strategies and their implications. The patient is aware that there is some possibility of a blood transfusion and its associated risks and benefits. She wishes to proceed and gives her informed consent. Will Mario M.D. Hospital Course freddy III, endometrial thickness Home Meds Active Scripts Docusate Sodium* (Colace*) 100 Mg Capsule, 100 MG PO DAILY, #30 CAP Prov:ALBERTA HAYWOOD 11/04/16 Metformin Hcl (Glucophage) 500 Mg Tablet, 500 MG GTB BID WITH MEALS for 30 Days , TAB Prov:ALBERTA HAYWOOD 11/04/16 Primary Care Provider Jon Rossi Pending Labs Laboratory Tests Test 11/03/16 14:05 11/03/16 17:26 11/03/16 22:12 11/04/16 08:12 White Blood Count 14.810^3/ul (4.8-10.8) Red Blood Count 3.9010^6/ul (4.20-5.40) Hemoglobin 11.3g/dl (12.0-16.0) Hematocrit 34.4% (37.0-47.0) Mean Corpuscular Volume 88.2fl (82.0-101.0) Mean Corpuscular Hemoglobin 29.0pg (29.0-33.0) Mean Corpuscular Hemoglobin Concent 32.8g/dl (32.0-37.0) Red Cell Distribution Width 12.9% (11.5-14.5) Platelet Count 87708^3/UL (140-415) Mean Platelet Volume 10.9fl (7.4-10.4) Neutrophils % 75.0% (39.0-77.0) Lymphocytes % 16.9% (15.0-51.0) Monocytes % 5.9% (0.0-11.0) Eosinophils % 1.4% (0.0-7.0) Basophils % 0.3% (0.0-2.0) Nucleated Red Blood Cells % 0.0/100WBC (0.0-0.0) Neutrophils # 11.110^3/ul (1.6-7.5) Lymphocytes # 2.510^3/ul (0.8-2.9) Monocytes # 0.910^3/ul (0.3-0.9) Eosinophils # 0.210^3/ul (0.0-0.5) Basophils # 0.010^3/ul (0.0-0.1) Nucleated Red Blood Cells # 0.010^3/ul (0.0-0.0) Sodium Level 138mmol/L (135-144) Potassium Level 3.8mmol/L (3.5-5.1) Chloride Level 106mmol/L (97-110) Carbon Dioxide Level 24mmol/L (21-31) Anion Gap 12 (8-16) Blood Urea Nitrogen 8mg/dl (7-20) Creatinine 0.52mg/dl (0.44-1.00) Glucose Level 148mg/dl (70-220) Calcium Level 8.8mg/dl (8.4-10.2) Bedside Glucose 147mg/dL (70-220) 187mg/dL (70-220) 131mg/dL (70-220) Test 11/04/16 11:54 Bedside Glucose 154mg/dL (70-220) ALBERTA HAYWOOD Nov 04, 2016 13:12
== END 2016-11-04 14:30 | disposition home or self-care (01) | DRG 743 ==
LOC: REC 11-01 05:38 → MS2 11-01 12:35
PROC: 0UT9FZZ Resection of Uterus, Via Natural or Artificial Opening With Percutaneous Endoscopic Assistance (ICD-10-PCS; principal; 2016-11-03)
PROC: 0UT2FZZ Resection of Bilateral Ovaries, Via Natural or Artificial Opening With Percutaneous Endoscopic Assistance (ICD-10-PCS; 2016-11-03)
PROC: 0UT7FZZ Resection of Bilateral Fallopian Tubes, Via Natural or Artificial Opening With Percutaneous Endoscopic Assistance (ICD-10-PCS; 2016-11-03)
PROC: 07BC4ZZ Excision of Pelvis Lymphatic, Percutaneous Endoscopic Approach (ICD-10-PCS; 2016-11-03)
DX: N87.1 Moderate cervical dysplasia (principal); E11.9 Type 2 diabetes mellitus without complications; F17.210 Nicotine dependence, cigarettes, uncomplicated; E78.00 Pure hypercholesterolemia, unspecified; R19.7 Diarrhea, unspecified
CPT/HCPCS: 80048; 80053; 82962; 83036; 85025; 85610; 86850; 86900; 86901; 86920; 87086; J1200; J1815; J1885; J2250; J2274; J2370; J2710; J3010; J3480; J7120; J7999

== ENCOUNTER 2016-11-06 16:23 | Emergency (ER) | payer SELFPAY ==
[~2016-11-06] VITALS: Ht 172.7 cm; Wt 87.0 kg
[~2016-11-06 16:23] MED LIST: DOCU-144 PO; METF500T GTB
[2016-11-06 16:31] VITALS: Ht 172.7 cm; Wt 87.0 kg
--- NOTE | 2016-11-06 17:05 | EN ---
Date/Time of Note Date/Time of Note DATE: 11/06/16 TIME: 17:01 ER Progress Note Patient is a 56 year old female who is POD 5 from a hysterectomy performed by Dr. Mario. Patient is here for check of her wound site and "removal of the area." Patient is very unclear as to what she wants to be seen for and is complaining that "we should know what to do." Patient states that she was sent here from the lobby and the nurses know what they need to do. I explained to the patient that I am trying to help her and that I am trying to understood what she is looking for here in the ER, but patient is unclear and mad and states that she wants to leave. I explained to patient that I will contact her surgeon, Dr. Mario, but patient refused and stated she wants to leave and will possibly come back later. During the examination, patient was asymptomatic and did not have fever, chills or drainage from her sites. Patient had 4 areas of bandaids where the laparoscopic incision was made. There was no erythema or signs of infection. I consulted with my supervising physician Dr Cat who called paged Dr. Mario, however, patient refused to wait and left. WILBER WEEKS PA-C Nov 06, 2016 17:05
== END 2016-11-06 21:56 | disposition left against medical advice (07) ==
LOC: FTE 16:23
DX: Z53.21 Procedure and treatment not carried out due to patient leaving prior to being seen by health care provider (principal)